=== PATIENT | female | born 1990 | race Caucasian/White ===

== ENCOUNTER → 2018-08-26 16:35 | Observation (INO) ==
--- NOTE | 2018-08-26 14:59 | OB/GYN Progress Note ---
Date of Encounter: 08/26/18 Time of Encounter: 14:54 - Assessment and Plan (1) 26 weeks gestation of Current Visit: Yes Status: Acute Urinalysis contaminated, not indicative of UTI Vaginosis negative Fetus tracing appropriate for gestation Vaginal yeast infection per microscopic and vaginal exam - Terzol Rx given to patient Discharge home with PTL precautions Follow up in office as scheduled and PRN POC per consult with Dr García (2) Vaginal yeast infection Current Visit: Yes Status: Acute Subjective - Subjective Principal diagnosis: vaginal discharge Interval history: Ms Evon bautista 27 year old, at 26 weeks and 0 days presents to triage with c/o a single gush of clear-white fluid at 11am when making her bed. She states it has not occurred since. She states positive movement. She denies headaches, vision changes, epigastric pain, vaginal bleeding, and cont ractions/cramping. This has been complicated by oligohydramnious; last ultrasound was 08/22/18 with an SEBASTIEN of 6.32cm; per MFM SEBASTIEN [id number] until third trimester. She is seen by Dr Pederson for her care. Antepartum ROS: movement normal, no vaginal bleeding Objective - Exam FHR: auscultation normal FHR comments: Appropriate for gestational age Baseline 160 with moderate variability Abdomen: Present: normal appearance, soft, gravid. Absent: tenderness Uterus: Present: normal. Absent: firm, tenderness Comments: SSE - cervix visually closed, moderate amount of thick white adherent discharge Nitrazine negative Negative for ferning, obvious yeast cells and buds on microscopic exam
[2018-08-26 15:35] LABS: Bilirubin,Urine Negative (Negative); Blood,Urine Negative (Negative); Clarity,Urine Cloudy (Clear); Color,Urine Yellow (Yellow); Glucose,Urine (UA) Normal (Normal); Ketones,Urine 15 mg/dL (Negative); Leukocyte Esterase,Urine Trace (Negative); Nitrite,Urine Negative (Negative); Protein,Urine Negative (Neg-Trace); Specific Gravity,Urine 1.013 (1.010-1.025); Urobilinogen,Urine Normal (Normal)
[2018-08-26 15:44] LABS: Amphetamine Screen,Urine Negative ng/mL (Cutoff=1000); Barbiturate Screen,Urine Negative ng/mL (Cutoff=200); Benzodiazepines Screen,Urine Negative ng/mL (Cutoff=200); Cannabinoid Screen,Urine Negative ng/mL (Cutoff = 50); Cocaine Screen,Urine Negative ng/mL (Cutoff= 300); Opiate Screen,Urine Negative ng/mL (Cutoff=300); Phencyclidine Screen,Urine Negative ng/mL (Cutoff=25)
[2018-08-26 15:56] LABS: Candida DNA Not Detected (Not Detect); Gardnerella DNA Not Detected (Not Detect); Trichomonas DNA Not Detected (Not Detect)
[2018-08-26 16:11] LABS: Bacteria,Urine Few per hpf (None-Few); RBC,Urine 0-3 per hpf (0-3); Squamous Epithelial Cell,Urine Moderate per lpf (None-Few); WBC,Urine 0-3 per hpf (0-3)
== END | disposition home or self-care (01) ==
LOC: 1NENULAB
PROVIDERS: ADMIT Student in an Organized Health Care Education/Training Program; ATTEND Student in an Organized Health Care Education/Training Program

== ENCOUNTER → 2018-09-07 23:00 | Observation (INO) ==
[2018-09-07 19:46] LABS: Basophils % 0.1 %; Eosinophils % 0.4 %; Hematocrit 37.9 % (35.3-44.9); Immature Granulocytes % 0.4 % (0-4); Lymphocytes % 25.5 %; Mean Corpuscular HGB Conc 34.3 g/dL (31.6-35.5); Mean Corpuscular Hemoglobin 33.3 pg (28.0-33.3); Mean Corpuscular Volume 97.2 fL (83.0-100.0); Mean Platelet Volume 9.9 fL (9.4-12.4); Monocytes # 0.6 K/mcL (0.0-1.3); Monocytes % 7.2 %; Neutrophils # 5.3 K/mcL (1.6-8.9); Platelet Count 199 K/mcL (140-400); Segmented Neutrophils % 66.4 %
[2018-09-07 20:04] LABS: INR 0.9; Prothrombin Time 10.2 Seconds (9.4-12.1)
[2018-09-07 20:06] LABS: Activated Partial Thrombo Time 27.3 Seconds (26.0-36.0)
[2018-09-07 20:35] LABS: Amphetamine Screen,Urine Negative ng/mL (Cutoff=1000); Barbiturate Screen,Urine Negative ng/mL (Cutoff=200); Benzodiazepines Screen,Urine Negative ng/mL (Cutoff=200); Cannabinoid Screen,Urine Negative ng/mL (Cutoff = 50); Cocaine Screen,Urine Negative ng/mL (Cutoff= 300); Opiate Screen,Urine Negative ng/mL (Cutoff=300); Phencyclidine Screen,Urine Negative ng/mL (Cutoff=25)
--- NOTE | 2018-09-07 20:36 | OB/GYN Progress Note ---
Date of Encounter: 09/07/18 Time of Encounter: 20:34 - Assessment and Plan (1) 27 weeks gestation of Current Visit: Yes Status: Acute (2) Postcoital bleeding Current Visit: Yes Status: Acute Bleeding ceased prior to arrival. Cervix is visually closed. Patient is placed on pelvic rest until further notice. Coags , CBC, and fibrinogen all normal for (3) Rh negative state in antepartum period Current Visit: Yes Status: Acute Await KB to determine how many doses of Rhogam she will need. Since she is 27 weeks we will administer at least her prophylactic dose at this time and notify her primary OB that it has been given. Subjective - Subjective Principal diagnosis: vaginal bleeding Interval history: Patient is G 2 P 1-0-0-1 presents via EMS for postcoital vaginal bleeding. She states she bled with bearing down thinking she needed to have a bowel movement. She denies any leaking fluid or contractions. She reports good movement. She does state this has been complicated by oligohydramnios. She denies any complications with her first . Antepartum ROS: vaginal bleeding, movement normal, no loss of fluid, no contractions Objective - Exam FHR: auscultation normal Abdomen: Present: soft, gravid Cervical dilation: visually closed Comments: Speculum exam shows old blood in the vagina. No active uterine, cervical, or vaginal bleeding. Cervix is visually closed. - Labs Labs: Abnormal lab results 492 mg/dL ([id number]) H 09/07/18 19:25
[~2018-09-07 23:00] MED LIST: Rho Immune Globulin 1,500 UNIT SYRINGE IM ONE
== END | disposition home or self-care (01) ==
LOC: 1NENULAB
PROVIDERS: ADMIT Obstetrics & Gynecology; ATTEND Obstetrics & Gynecology